=== PATIENT | male | born 1950 | race Caucasian/White ===

== ENCOUNTER → 2017-06-21 | Outpatient (CLI) | payer OTHER | END | disposition home or self-care (01) | LOC: US 07:10 | DX: Z13.9 Encounter for screening, unspecified (principal); Z87.891 Personal history of nicotine dependence ==

== ENCOUNTER 2018-06-19 16:58 | Emergency (ER) | payer MEDICARE, OTHER ==
[~2018-06-19 16:58] MED LIST: KEFLEX500 M1 PO
== END 2018-06-19 17:31 | disposition home or self-care (01) ==
LOC: ED 16:58
DX: S61.211D Laceration without foreign body of left index finger without damage to nail, subsequent encounter (principal); Z48.00 Encounter for change or removal of nonsurgical wound dressing; X58.XXXD Exposure to other specified factors, subsequent encounter